=== PATIENT | male | born 1995 | race Asian ===

== ENCOUNTER 2018-09-24 18:40 | Emergency (ER) | payer OTHER | END 2018-09-24 22:55 | disposition home or self-care (01) | LOC: M ED 18:40 | DX: S06.0X1A Concussion with loss of consciousness of 30 minutes or less, initial encounter (principal); X58.XXXA Exposure to other specified factors, initial encounter; Y92.9 Unspecified place or not applicable; Y93.9 Activity, unspecified; Y99.9 Unspecified external cause status | CPT/HCPCS: 70450 ==